=== PATIENT | male | born 1985 | race Caucasian/White ===

== ENCOUNTER 2016-05-06 02:40 | Emergency (ER) | payer MEDICAID, OTHER ==
[~2016-05-06] VITALS: Ht 172.7 cm; Wt 87.0 kg
[2016-05-06 04:30] VITALS: BP 128/77
== END 2016-05-06 05:14 | disposition home or self-care (01) ==
LOC: ER 02:40
DX: L21.9 Seborrheic dermatitis, unspecified (principal); R51 Headache
CPT/HCPCS: 99283

== ENCOUNTER 2017-04-11 02:26 | Emergency (ER) | payer MEDICAID ==
[~2017-04-11] VITALS: Ht 172.7 cm; Wt 92.0 kg
[2017-04-11] MEDS ORDERED: TETANUS, DIPHTHERIA, PERTUSSIS VAC/PF 0.5ML (>7YR OLD) IM ONE (03:30)
[2017-04-11 06:17] VITALS: BP 111/70
== END 2017-04-11 06:18 | disposition home or self-care (01) ==
LOC: ER 02:26
DX: S02.2XXA Fracture of nasal bones, initial encounter for closed fracture (principal); S01.111A Laceration without foreign body of right eyelid and periocular area, initial encounter; S60.511A Abrasion of right hand, initial encounter; J34.2 Deviated nasal septum; Y04.0XXA Assault by unarmed brawl or fight, initial encounter; Y93.89 Activity, other specified; Y92.89 Other specified places as the place of occurrence of the external cause
CPT/HCPCS: 70450; 70486; 99284

== ENCOUNTER 2017-04-20 16:18 | Emergency (ER) | payer MEDICAID ==
[~2017-04-20] VITALS: Ht 172.7 cm; Wt 91.0 kg
[2017-04-20] MEDS ORDERED: ACETAMINOPHEN 500MG TABLET PO ONE (23:45)
[2017-04-21] MEDS ORDERED: BACITRACIN ZINC OINT UDPKT TOP NR (01:30)
[2017-04-21 01:52] VITALS: BP 122/76
== END 2017-04-21 02:07 | disposition home or self-care (01) ==
LOC: ER 16:18
DX: R51 Headache (principal); Y09 Assault by unspecified means; Y93.89 Activity, other specified; Y92.89 Other specified places as the place of occurrence of the external cause; Y99.8 Other external cause status
CPT/HCPCS: 70450; 99284; Z7610

== ENCOUNTER 2017-09-11 06:56 | Emergency (ER) | payer MEDICAID ==
[~2017-09-11] VITALS: Ht 167.6 cm; Wt 87.0 kg
[2017-09-11 09:30] VITALS: BP 140/85
== END 2017-09-11 09:39 | disposition home or self-care (01) ==
LOC: ER 08:58
DX: J02.9 Acute pharyngitis, unspecified (principal); H61.22 Impacted cerumen, left ear
CPT/HCPCS: 87070; 87430; 99284; Z7610

== ENCOUNTER 2019-03-02 17:27 | Emergency (ER) | payer MEDICAID ==
[~2019-03-02] VITALS: Ht 172.7 cm; Wt 90.0 kg
[2019-03-02 23:29] LABS: BG BASE EXCESS -1.1 mmol/L (-2.0-2.0); BG CARBOXYHEMOGLOBIN 0.6 % (0.5-1.5); BG DEOXYHEMOGLOBIN 1.7 % (0.0-5.0); BG FRACTION INSPIRED OXYGEN 21; BG HCO3 ACT 21.6 mmol/L (22.0-26.0); BG METHEMOGLOBIN 0.4 % (0.0-1.5); BG OXYGEN SATURATION 98.3 % (92.0-98.5); BG OXYHEMOGLOBIN 97.3 % (94.0-97.0); BG PCO2 31.4 mmHg (35.0-45.0); BG PH 7.455 (7.350-7.450); BG PO2 106.1 mmHg (75.0-100.0); BG SAMPLE SITE RIGHT RADIAL; BG TOTAL HEMOGLOBIN 16.6 g/dL (12.0-18.0); BG VENT MODE ROOM AIR
[2019-03-02 23:49] VITALS: BP 142/82
== END 2019-03-02 23:52 | disposition home or self-care (01) ==
LOC: ER 17:39
DX: T59.891A Toxic effect of other specified gases, fumes and vapors, accidental (unintentional), initial encounter (principal); J68.9 Unspecified respiratory condition due to chemicals, gases, fumes and vapors; Y92.410 Unspecified street and highway as the place of occurrence of the external cause
CPT/HCPCS: 36600; 82375; 82805; 99283